=== PATIENT | male | born 1990 | race Caucasian/White ===

== ENCOUNTER 2020-01-13 13:19 | Emergency (ER) | payer SELFPAY ==
[~2020-01-13] VITALS: Ht 172.7 cm; Wt 68.0 kg
[2020-01-13 13:25] VITALS: BP 121/83
--- NOTE | 2020-01-13 13:25 | NUR ---
ED Nurse Note: Pt ambulated to ed due depression after losing . pt normally takes lexapro and depakote. no more of prescription
--- NOTE | 2020-01-13 13:39 | Emergency Room Report ---
History of Present Illness General Chief Complaint: Behavioral Complaint Source: Patient Present Illness HPI 29-year-old male with history of schizophrenia and HIV who is noncompliant with taking medication and reports has not taken any medication for 5 years here requesting refill of his Depakote, lithium, and started on HIV medication reports that he was diagnosed with HIV 6 months ago and he has not taken medication yet. Patient is interested in referrals to homeless shelters, HIV clinics, and psychiatric facilities. Denies SI and HI. Patient asked for food and oral hydration upon arrival. Denies any pain at this time. Denies drug use, alcohol intake, tobacco smoke. Allergies: Coded Allergies: CODEINE (Verified Allergy, Unknown, 01/13/20) COVID-19 Screening COVID-19 risk:Contact w/high r: No Has patient experienced romero: No COVID-19 Testing performed COUNTY DEMONSTRATOR: No Patient History Past Medical History: see triage record Family History: unable to obtain Reviewed Nursing Documentation: PMH: Agreed; PSxH: Agreed Nursing Documentation-PMH Past Medical History: No History, Except For Review of Systems All Other Systems: negative except mentioned in HPI Physical Exam Vital Signs Date Time Temp Pulse Resp B/P (MAP) Pulse Ox O2 Delivery O2 Flow Rate FiO2 01/13/20 13:23 97.9 108 20 121/83 (96) 100 Room Air Sp02 EP Interpretation: reviewed, normal General Appearance: alert/responsive, no apparent distress, GCS 15, non-toxic Head: atraumatic Eyes: PERRL, lids + conjunctiva normal ENT: hearing intact, no angioedema Neck: supple/symm/no masses, no meningismus Respiratory: effort normal, no wheezing, chest symmetrical Cardiovascular: regular rate, rhythm, no edema Cardiovascular #2: 2+ carotid (R), 2+ carotid (L), 2+ dorsalis pedis (R), 2+ dorsalis pedis (L) Gastrointestinal: non-tender, no mass, non-distended, no rebound/guarding, normal bowel sounds Musculoskeletal: gait & station normal, normal ROM, strength & tone normal, non-tender Neurologic: oriented x3, sensory intact, normal speech Psychiatric: judgment & insight normal, no suicidal/homicidal ideation Skin: no rash, well hydrated Lymphatic: normal inspection Medical Decision Making PA Attestation All my diagnosis and treatment plans were reviewed ad discussed with my supervising physician Dr. Holt Diagnostic Impression: Primary Impression: Schizophrenia Additional Impression: HIV (human immunodeficiency virus infection) ER Course 29-year-old male with history of schizophrenia and HIV who is noncompliant with taking medication and reports has not taken any medication for 5 years here requesting refill of his Depakote, lithium, and started on HIV medication reports that he was diagnosed with HIV 6 months ago and he has not taken medica tion yet. Patient is interested in referrals to homeless shelters, HIV clinics, and psychiatric facilities. Denies SI and HI. Patient asked for food and oral hydration upon arrival. Denies any pain at this time. Denies drug use, alcohol intake, tobacco smoke. Ddx considered but are not limited to: generalized anxiety disorder, panic attack, depression with psycotic featurs, bipolar disorder, drug overdose Vital signs: are WNL, pt. is afebrile H&PE are most consistent with: Schizophrenia, HIV ORDERS: none required at this time, the diagnosis is clinical ED INTERVENTIONS: None required at this time. DISCHARGE: At this time pt. is stable for d/c to home. Will provide printed patient care instructions, and any necessary prescriptions. Care plan and follow up instructions have been discussed with the patient prior to discharge. Gave patient a list of facilities to follow-up with at this time it is not advised to start lithium and Depakote on the patient was not taking them for 5 years. Also start of HIV medication is not routinely done at the emergency department however proper resources were provided for the patient. If worsening symptoms return to the emergency room Last Vital Signs Date Time Temp Pulse Resp B/P (MAP) Pulse Ox O2 Delivery O2 Flow Rate FiO2 01/13/20 13:23 97.9 108 20 121/83 (96) 100 Room Air Disposition: HOME, SELF-CARE Condition: Stable Patient Instructions: HIV Infection and AIDS, Schizophrenia Axel Denson Jan 13, 2020 13:39
[2020-01-13 13:50] VITALS: BP 128/75
--- NOTE | 2020-01-13 13:50 | NUR ---
ED Nurse Note: Pt cleared by ERPA for discharge. DC instructions/ resources was given and explained to pt and verbalized understanding of teachings. All medical deviecs such as ID band removed. Pt is AAO x4, ambulatory and left with all personal belongings. pt will take the bus.
== END 2020-01-13 13:50 | disposition home or self-care (01) ==
LOC: EMR 13:42
DX: F20.9 Schizophrenia, unspecified (principal); B20 Human immunodeficiency virus [HIV] disease; Z91.19 Patient's noncompliance with other medical treatment and regimen; Z88.5 Allergy status to narcotic agent
CPT/HCPCS: 99282

== ENCOUNTER 2020-01-17 13:40 | Emergency (ER) | payer MEDICAID ==
[~2020-01-17] VITALS: Ht 172.7 cm; Wt 56.7 kg
--- NOTE | 2020-01-17 14:30 | NUR ---
ED Nurse Note:pt. came from the street for psych and blood count(HIV positive) evaluation, pt. is A/Ox4 ambulatory with steady gait, wants to be placed to valuntary psych facility
--- NOTE | 2020-01-17 14:36 | Emergency Room Report ---
History of Present Illness General Chief Complaint: General Complaint Present Illness HPI 29-year-old homeless male presents today with feelings of weakness and dizziness. Patient states he was diagnosed with HIV 6 months ago and he has not taken any medications for it. He states he could not fill them due to cost. He is requesting labs to check his white blood cell count. Additionally, pt is currently stating that he is feeling very depressed. He states he has a history of depression but he has not taken his medications for depression because of cost. He states his partner recently and that that his depression has been increasing lately. He states that he is having thoughts of killing himself. He states that he is feeling very depressed since he lost his partner and that he does not wish to live anymore. He does not have an exact plan. He denies any hallucinations or HI. He is requesting voluntary pysch. Location: Whole body Severity: Mild Timing: Today Modifying Factors: see above Associated signs and symptoms: None PMH: Bipolar, depression, HIV PSH: No pertinent medical history Smoking: Cigarettes occasionally Ethanol: [Denies] Drug: Recent meth user (Stephania Felipe PA-C) Allergies: Coded Allergies: CODEINE (Verified Allergy, Unknown, 01/13/20) COVID-19 Screening Contact w/high risk pt: No Experienced COVID-19 symptoms?: No COVID-19 Testing performed FILAMENT CUTTER: No (Stephania Felipe PA-C) Review of Systems Narrative Review of systems: CONST: No fevers or chills, No night sweats EYES: No eye pain, vision change, eye discharge HEAD/EARS/NOSE/THROAT: No earache, sore throat, or nasal discharge. PULMONARY: No SOB, no cough, no wheezing CARDIAC: No chest pain, No palpitations, no leg swelling GI: No abdominal pain, no vomiting, no diarrhea , no melena or BRBPR : No flank pain, no dysuria, no hematuria, no frequency. MUSCULOSKELETAL: No back pain, no neck pain, no leg pain SKIN: No rash, no itching, no bruising NEUROLOGICAL: No headache, + dizziness, no paresthesia , no focal weakness but does complain of weakness 14 point Review of Systems is otherwise negative except per HPI (Stephania Felipe PA-C) Physical Exam Vital Signs Date Time Temp Pulse Resp B/P (MAP) Pulse Ox O2 Delivery O2 Flow Rate FiO2 01/17/20 13:50 98.6 96 22 113/72 (86) 95 Room Air Other Organ Systems Physical Exam: GENERAL: Awake, alert, nontoxic, in no acute distress EYES: EOMI, conjunctiva without pallor HEAD/EARS/NOSE/THROAT: NCAT, oral mucosa moist, external nose and ear normal in appearance, oropharynx clear, no swelling or exudates. NECK: supple, nontender, no spasm, no JVD, no cervical adenopathy RESPIRATORY: no stridor, effort normal, no retractions, no accessory muscle use, BS clear bilaterally, no wheezes, no rhonchi, no rales, no rub. CARDIOVASCULAR: RRR, normal S1 S2, no murmur, no peripheral edema ABDOMINAL /GI: soft, nondistended, nontender, BS normal, no masses, no guarding, no Mcburneys point tenderness, no rebound, no Murpheys sign : No CVA tenderness MUSCULOSKELETAL: All extremities are non-tender, no swelling, FROM, normal strength, normal sensation, cap refill <2 seconds in all extremities EXTREMITIES: no leg swelling, pulses: 2+ brisk and normal in all distal extremities SKIN: No rash, skin is warm and dry. No cyanosis, no pallor NEUROLOGICAL: awake, alert and appropriate, oriented x3, speech normal, motor and sensation grossly intact PSYCHIATRIC: Normal mood, normal affect (Stephania Felipe PA-C) Medical Decision Making PA Attestation Dr. Leigh Is my supervising Physician whom patient management has been discussed with. (Stephania Felipe PA-C) Diagnostic Impression: Primary Impression: Suicidal ideation ER Course Pt. presents to the ED c/o weakness and dizziness. He is also reporting symptoms of depression and is requesting voluntary psychiatric evaluation and placement. Ddx considered but are not limited to electrolyte abnormality, dehydration, arrhythmia, action, drug usage Vital signs: are WNL, pt. is afebrile H&PE are most consistent with depression. ED INTERVENTIONS: CBC reveals no elevated or decreased white blood cell count, no signs of severe anemia. CMP reveals no acute electrolyte abnormalities. Toxicology screen is positive for marijuana however there is no evidence of salicylates overdosage or acetaminophen overdose. Serum alcohol is negative. No imaging required at this time. EKG reveals no acute findings and patient is not reporting any chest pain or shortness of breath, therefore chest x-ray was not ordered. Patient symptoms do not appear cardiac related. Unsure cause of patient's dizziness however no acute findings noted today. EKG showed no evidence of dangerous arrhythmias causing the weakness, he is ANO x3. He is currently sleeping in the bed in no acute distress and vital signs are stable. This case was signed out to my supervising physician Dr. Leigh pending psychiatric placement. Patient is medically cleared for psychiatric evaluation. Laboratory Tests Test 01/17/20 14:25 White Blood Count 10.0 K/UL (4.8-10.8) Red Blood Count 4.72 M/UL (4.70-6.10) Hemoglobin 14.9 G/DL (14.2-18.0) Hematocrit 44.4 % (42.0-52.0) Mean Corpuscular Volume 94 FL (80-99) Mean Corpuscular Hemoglobin 31.4 PG (27.0-31.0) H Mean Corpuscular Hemoglobin Concent 33.4 G/DL (32.0-36.0) Red Cell Distribution Width 13.1 % (11.6-14.8) Platelet Count 262 K/UL (150-450) Mean Platelet Volume 7.2 FL (6.5-10.1) Neutrophils (%) (Auto) 65.3 % (45.0-75.0) Lymphocytes (%) (Auto) 29.5 % (20.0-45.0) Monocytes (%) (Auto) 4.1 % (1.0-10.0) Eosinophils (%) (Auto) 0.4 % (0.0-3.0) Basophils (%) (Auto) 0.8 % (0.0-2.0) Sodium Level 143 MMOL/L (136-145) Potassium Level 3.7 MMOL/L (3.5-5.1) Chloride Level 106 MMOL/L (98-107) Carbon Dioxide Level 33 MMOL/L (21-32) H Anion Gap 4 mmol/L (5-15) L Blood Urea Nitrogen 18 mg/dL (7-18) Creatinine 1.3 MG/DL (0.55-1.30) Estimated Glomerular Filtration Rate > 60 mL/min (>60) Glucose Level 82 MG/DL (74-106) Calcium Level 8.7 MG/DL (8.5-10.1) Total Bilirubin 0.2 MG/DL (0.2-1.0) Aspartate Amino Transferase (AST) 14 U/L (15-37) L Alanine Aminotransferase (ALT) 21 U/L (12-78) Alkaline Phosphatase 61 U/L (46-116) Total Protein 7.0 G/DL (6.4-8.2) Albumin 3.5 G/DL (3.4-5.0) Globulin 3.5 g/dL Albumin/Globulin Ratio 1.0 (1.0-2.7) Salicylates Level 1.6 ug/mL (2.8-20) L Urine Opiates Screen Negative (NEGATIVE) Acetaminophen Level < 2 MCG/ML (10-30) L Urine Barbiturates Screen Negative (NEGATIVE) Phencyclidine (PCP) Screen Negative (NEGATIVE) Urine Amphetamines Screen Negative (NEGATIVE) Urine Benzodiazepines Screen Negative (NEGATIVE) Urine Cocaine Screen Negative (NEGATIVE) Urine Marijuana (THC) Screen Positive (NEGATIVE) H Serum Alcohol < 3 mg/dL Microbiology Date/Time Source Procedure Growth Status 01/17/20 17:00 Nasopharynx SARS-CoV-2 RdRp Gene Assay - Final Complete (Stephania Felipe PA-C) ER Course Please see above note. Patient signed out to me by Dr. Leigh. Medically clear for psychiatric hospitalization. In the past (9 years ago) took Depakote and Lexapro. He does not want to take these medications at this time. Medically clear for psychiatric hospitalization. Awaiting placement. Patient left room and sleep on ground. Refused to go back to bed due to other patient snoring. Agreed to take medication to help sleep. Wellbutrin and Ativan ordered. Signed out to Dr. Whitman. (Uziel Rivas MD) ER Course Assumed care of the patient from the previous provider at approximately 0600. Please refer to initial note for full history and physical exam. Briefly, 29-year-old male boarding in emergency department pending psychiatric placement for depression and suicidal ideation. Resting comfortably at this time. He is medically cleared for transfer. (Aquilino Whitman MD) ER Course Patient was signed out to me by the previous physician Dr. Whitman. He remained hemodynamically stable and neurovascularly intact. He was clinically sober. He was evaluated by the psychiatrist Dr. Knapp who deemed the patient stable for discharge. Patient was not expressing any suicidal ideation at this time. He was given a taxi voucher and instructions to go to a psychiatric hospital if he is feeling any feelings of suicidal ideation or homicidal ideation. Patient expressed understanding. Not a danger to himself or others at this time. Discharged in good condition. (Alexis Diaz M.D.) EKG Diagnostic Results Troponin ordered: No - Pt was not complaining of chest pain, not cardiac relat ed EKG Time: 15:30 EP Interpretation: No acute ST or T wave changes Rate: normal Rhythm: NSR ST Segments: no acute changes ASA given to the pt in ED: No PA Scribe Text This interpretation was scribed by the PA (Stephania Felipe PA-C) Last Vital Signs Date Time Temp Pulse Resp B/P (MAP) Pulse Ox O2 Delivery O2 Flow Rate FiO2 01/17/20 13:50 98.6 96 22 113/72 (86) 95 Room Air (Stephania Felipe PA-C) Last Vital Signs Date Time Temp Pulse Resp B/P (MAP) Pulse Ox O2 Delivery O2 Flow Rate FiO2 01/18/20 03:59 98.6 89 18 112/70 88 Room Air Status: unchanged (Uziel Rivas MD) Condition: Stable Signed Out To: to Dr. Leigh at 2024 (Stephania Felipe PA-C) Stephania Felipe PA-C Jan 17, 2020 14:36 Uziel Rivas MD Jan 18, 2020 05:30 Aquilino Whitman MD Jan 18, 2020 06:15 Alexis Diaz M.D. Jan 18, 2020 14:59
--- NOTE | 2020-01-17 14:36 | NUR ---
ED Nurse Note:blood and urine sent to labs
[2020-01-17 14:37] VITALS: BP 113/72
[2020-01-17 15:17] LABS: ANION GAP 4 mmol/L (5-15); BLOOD UREA NITROGEN 18 mg/dL (7-18); CALCIUM 8.7 MG/DL (8.5-10.1); CARBON DIOXIDE 33 MMOL/L (21-32); CHLORIDE 106 MMOL/L (98-107); CREATININE 1.3 MG/DL (0.55-1.30); POTASSIUM 3.7 MMOL/L (3.5-5.1); SODIUM 143 MMOL/L (136-145)
[2020-01-17 15:21] LABS: ALANINE AMINOTRANSFERASE 21 U/L (12-78); ALBUMIN 3.5 G/DL (3.4-5.0); ALKALINE PHOSPHATASE 61 U/L (46-116); ASPARTATE AMINO TRANSFERASE 14 U/L (15-37); BILIRUBIN,TOTAL 0.2 MG/DL (0.2-1.0)
[2020-01-17 15:28] LABS: BASOPHILS % (AUTO) 0.8 % (0.0-2.0); EOSINOPHILS % (AUTO) 0.4 % (0.0-3.0); HEMATOCRIT 44.4 % (42.0-52.0); HEMOGLOBIN 14.9 G/DL (14.2-18.0); LYMPHOCYTES % (AUTO) 29.5 % (20.0-45.0); MEAN CORPUSCULAR VOLUME 94 FL (80-99); MONOCYTES % (AUTO) 4.1 % (1.0-10.0); NEUTROPHILS % (AUTO) 65.3 % (45.0-75.0); PLATELET COUNT 262 K/UL (150-450); RED BLOOD COUNT 4.72 M/UL (4.70-6.10); RED CELL DISTRIBUTION WIDTH 13.1 % (11.6-14.8)
[2020-01-17 18:42] VITALS: BP 115/76
--- NOTE | 2020-01-17 18:44 | NUR ---
ED Nurse Note:pt. is sleeping in the room, no anxiety noted
--- NOTE | 2020-01-17 19:07 | NUR ---
HAND-OFF: Report given to Asael.
--- NOTE | 2020-01-17 19:30 | NUR ---
PT RECEIVED AND REPORT FREDERICK MEADTER WITH FREDERICK YOUNG
--- NOTE | 2020-01-17 22:30 | NUR ---
PT GIVEN SANDWICH JUICE RASHID WELL
--- NOTE | 2020-01-17 23:00 | NUR ---
PT SLEEPING NO DISTRESS SITTER WITH PT
--- NOTE | 2020-01-18 02:25 | NUR ---
PT AMBULATORY TO [facility] AND BACK TI RM CALM COOPERATIVE
[2020-01-18 03:59] VITALS: BP 112/70
--- NOTE | 2020-01-18 04:05 | NUR ---
PT SLEEPING RESP EVEN
--- NOTE | 2020-01-18 05:28 | NUR ---
DR BRADY TO [facility] PT
[2020-01-18] MEDS ORDERED: LORazepam 1mg tab ORAL ONE (05:45)
--- NOTE | 2020-01-18 05:59 | NUR ---
PT UPSET WITH OTHER PT IN ROOM SNORING TRYING TO SLEEP ON FLOOR IN [facility] DR BRADY ADVISED TO MED PT FOR SLEEPPT BACK TO [facility] AND MEDS GIVEN
--- NOTE | 2020-01-18 08:10 | NUR ---
ED Nurse Note: Pt on bed, awake and alert x 4, consuming breakfast tray.
[2020-01-18 09:15] VITALS: BP 126/80
--- NOTE | 2020-01-18 11:45 | NUR ---
ED Nurse Note: Pt consumed lunch tray at bed, no acute distress noted.
[2020-01-18 14:12] VITALS: BP 130/85
--- NOTE | 2020-01-18 15:06 | NUR ---
ED Nurse Note: Pt was seen and evaluated by Dr. Knapp via [facility].
--- NOTE | 2020-01-18 15:24 | NUR ---
ED Nurse Note: afternoon snacks offered
--- NOTE | 2020-01-18 16:25 | Cardiology Report ---
APPROVED REPORT EKG Measurement Heart [id number] <Conclusion> Normal sinus rhythm Normal ECG
[2020-01-18 16:32] VITALS: BP 128/82
--- NOTE | 2020-01-18 16:32 | NUR ---
ER DISCHARGE NOTE: Patient is cleared to be discharged per ERMD, pt is aox4, on room air, with stable vital signs. pt was given dc and prescription instructions, pt was able to verbalize understanding, pt id band and iv site removed without complications. pt is able to ambulate with steady gait. pt took all belongings.
--- NOTE | 2020-01-18 21:00 | Consultation ---
DATE OF CONSULTATION: 01/18/2020 HISTORY OF PRESENT ILLNESS: This is a 29-year-old male with history of HIV, psychotic disorder, and cannabis abuse. He has been admitted to the hospital for depressive symptoms. He denies any suicidal or homicidal ideation. The patient is refusing to go to a psychiatric unit as he is hopeless and does not have anywhere to go to. The patient recently came to the ER, did not follow up with outpatient clinic to get his HIV medication or antidepressants. PAST PSYCHIATRIC HISTORY: No psychiatric hospitalization. No suicide attempt. PAST MEDICAL HISTORY: HIV diagnosed 6 months ago. ALLERGIES: Codeine. SUBSTANCE ABUSE HISTORY: Positive for cannabis. He has a history of drug use. SOCIAL HISTORY: The [place]. The patient initially resided in [place], then [facility]. MENTAL STATUS EXAMINATION: The patient is alert and oriented to times self, place, situation, and date. Mood is dysphoric. Affect is blunted, congruent with mood. Thought process is linear and goal oriented. Thought content, there is no suicidal or homicidal ideation. Cognition is intact. Insight and judgment, is fair. ASSESSMENT: AXIS I: 1. Cannabis dependence. 2. Rule out depressive disorder. AXIS II: Deferred. AXIS III: HIV. AXIS IV: Homelessness. AXIS V: 60 PLAN: 1. The patient is not meeting criteria for 5150. 2. He is not an imminent danger to self or others. 3. The patient will be given referral to outpatient psychiatrist. 4. The patient was told to go back to the nearest emergency room. 5. He denies any suicidal thoughts. Kristina Knapp M.D. DR: Fab JOB#: [id number] CC:
== END 2020-01-18 16:32 | disposition home or self-care (01) ==
LOC: EMR 14:00
DX: R45.851 Suicidal ideations (principal); B20 Human immunodeficiency virus [HIV] disease; F32.9 Major depressive disorder, single episode, unspecified; Z88.5 Allergy status to narcotic agent
CPT/HCPCS: 36415; 80053; 80307; 85025; 93005; G0480; G0481; U0002; Z7502; 99283